=== PATIENT | female | born 1985 | race Caucasian/White ===

== ENCOUNTER 2024-03-23 21:30 | Emergency (ER) | payer MEDICAID ==
[~2024-03-23] VITALS: Ht 152.4 cm; Wt 86.1 kg
--- NOTE | 2024-03-24 00:05 | ED.PDOC ---
History of Present Illness(SKN HPI Comments This is a 38-year-old female presents to the ED chief complaint laceration to left thumb. Patient reports around 45 minutes prior to arrival she was cutting an onion which made her eyes tear accidentally slicing the tip of her left thumb. She reports no numbness or weakness. She describes pain as pressure nonradiating type pain 3/10 on pain scale. Wound is currently dressed no active bleeding at this time. Chief Complaint: Laceration Time Seen by MD: 22:43 History of Present Illness: Nurses Notes, Medications, Allergies Allergies: Coded Allergies: NO KNOWN ALLERGIES (Unverified , 03/23/24) Information Source: Patient Mode of Arrival: Ambulatory Past Medical History PAST MEDICAL HISTORY: Denies Surgical History: Denies all surgeries CONSTRUCTION CHECKER History: No Pertinent CONSTRUCTION CHECKER History Family History Family History: Reviewed,noncontributory to illness Constitutional: denies: chills, diaphoresis, fatigue, fever, malaise, sweats, weakness, others EENTM: denies: blurred vision, double vision, ear bleeding, ear discharge, ear drainage, ear pain, ear ringing, eye pain, eye redness, hearing loss, mouth pain, mouth swelling, nasal discharge, nose bleeding, nose congestion, nose pain, photophobia, tearing, throat pain, throat swelling, voice changes, others Respiratory: denies: cough, hemoptysis, orthopnea, SOB at rest, shortness of breath, SOB with excertion, stridor, wheezing, others Cardiovascular: denies: chest pain, dizzy spells, diaphoresis, Dyspnea on exertion, edema, irregular heart beat, left arm pain, lightheadedness, palpitations, PND, syncope, others Gastrointestinal: denies: abdomen distended, abdominal pain, blood streaked bowels, constipated, diarrhea, dysphagia, difficulty swallowing, hematemesis, melena, nausea, poor appetite, poor fluid intake, rectal bleeding, rectal pain, vomiting, others Genitourinary: denies: abnormal vagina bleeding, burning, dyspareunia, dysuria, flank pain, frequency, hematuria, incontinence, pain, , vagina discharge, urgency, others Neurological: denies: dizziness, fainting, headache, left sided numbness, left sided weakness, numbness, paresthesia, pre-existing deficit, right sided numbness, right sided weakness, seizure, speech problems, tingling, tremors, weakness, others Musculoskeletal: denies: back pain, gout, joint pain, joint swelling, muscle pain, muscle stiffness, neck pain, others Integumetry: reports: wounds (Tip of left thumb); denies: bruises, change in color, change in hair/nails, dryness, laceration, lesions, lumps, rash, others Allergic/Immunocompromised: denies: Difficulty Healing, Frequent Infections, Hives, Itching, others Hematologic/Lymphatic: denies: anemia, blood clots, easy bleeding, easy bruising, swollen glands, others Endocrine: denies: excessive hunger, excessive sweating, excessive thirst, excessive urination, flushing, intolerance to cold, intolerance to heat, unexplained weight gain, unexplained weight loss, others Psychiatric: denies: anxiety, bipolar disorder, depression, hopeless, panic disorder, schizophrenia, sleepless, suicidal, others Physical Exam General Appearance: No Apparent Distress, Normal HEENT: Pharynx Normal Neck: Full Range of Motion, Non-Tender Respiratory: Lungs Clear, No Respiratory Distress, Normal Breath Sounds Cardiovascular: No Edema, No JVD, No Murmur, No Gallop, Normal Peripheral Pulses, Regular Rate/Rhythm Breast Exam: Deferred Gastrointestinal: Non Tender, Soft Genitalia: Deferred Pelvic: Deferred Rectal: Deferred Extremities: Normal capillary refill, Normal inspection, Normal range of motion, Non-tender Musculoskeletal : Apperance: Normal Neurologic: Alert, stock control supervisor II-XII nml as Tested, No Motor Deficits, Normal Affect, Normal Mood, No Sensory Deficits Cerebellar Function: Normal Reflexes: Normal Skin: Dry, Normal Color, Warm, Wounds (Healing avulsion flap distal phalanx left thumb no noted bleeding or drainage. Nail bed intact) Lymphatic: No Adenopathy Was a procedure done? Was a procedure done?: Yes Sedation Sedation?: No Informed consent obtained: Yes Laceration Repair : Location Avulsion 2 cm Length 2 cm Anesthetic: Nothing Laceration Repair Prep: Saline Laceration Repair Wound Comple: epidermis/dermis repair Laceration Repair: Dermabond Informed consent obtained: Yes Risks, benefits, and alternati: Yes Notes Patient tolerated procedure well with minimal blood loss Differential Diagnosis (INTG) Differential Diagnosis: Abrasion, Laceration X-Ray, Labs, Meds, VS Vital Signs Date Time Temp Pulse Resp B/P (MAP) Pulse Ox O2 Delivery O2 Flow Rate FiO2 03/24/24 00:49 98.1 75 19 110/50 (70) 97 98.1 03/24/24 00:49 75 19 97 Room Air 03/23/24 22:05 98.1 62 18 111/68 (82) 98 X-Ray, Labs, Meds, VS Comment Good approximation bleeding stopped with Dermabond. Finger cleansed and dressed. Advised to follow up PCP in 2-3 days for wound evaluation or return to the ER or urgent care. Advised to return to the ER for increasing pain, numbness, weakness, uncontrolled bleeding, or any signs and symptoms of infection. Patient agrees with discharge plan of care. Time of 1ST Reevaluation: 00:25 Reevaluation 1ST: Improved Patient Education/Counseling: Diagnosis, Treatment, Prognosis, Need For Follow Up Family Education/Counseling: No Family Present Departure 1 Departure Time of Disposition: 00:28 Impression: Primary Impression: Avulsion of skin of finger without complication Qualified Codes: S61.209A - Unspecified open wound of unspecified finger without damage to nail, initial encounter Disposition: HOME / SELF CARE / HOMELESS Condition: Stable Discharged With: Self Critical Care Note Critical Care Time?: No Stability Stability form required: LEYLA Batista Mar 24, 2024 00:05
[2024-03-24 00:49] VITALS: BP 110/50; PULSE 75; RESP 19; TEMP 98.1; O2SAT 97
== END 2024-03-24 00:52 | disposition home or self-care (01) ==
LOC: ER 21:30
DX: S61.012A Laceration without foreign body of left thumb without damage to nail, initial encounter (principal); W26.8XXA Contact with other sharp object(s), not elsewhere classified, initial encounter; Y93.89 Activity, other specified; Y92.89 Other specified places as the place of occurrence of the external cause; Y99.8 Other external cause status
CPT/HCPCS: 12001

== ENCOUNTER → 2024-04-07 | Outpatient (CLI) | payer MEDICAID ==
[2024-04-07 16:20] LABS: Basophils # (auto) 0.1 10 ^3/uL (0-0.2); Basophils % (auto) 0.5 % (0.0-2.0); Eosinophils # (auto) 0.4 10 ^3/uL (0-0.8); Eosinophils % (auto) 3.4 % (0.0-7.0); Hematocrit 43.4 % (36.0-46.0); Hemoglobin 14.8 g/dL (12.2-16.2); Lymphocytes # (auto) 3.1 10 ^3/uL (0.4-5.4); Lymphocytes % (auto) 28.6 % (10.0-50.0); Mean Corpuscular Hgb Conc. 34.1 g/dL (32.0-36.0); Mean Corpuscular Volume 96.7 fL (80.0-100.0); Monocytes # (auto) 0.8 10 ^3/uL (0-1.3); Neutrophils # (auto) 6.6 10 ^3/uL (1.6-8.6); Neutrophils % (auto) 60.5 % (37.0-80.0); Platelet Count (auto) 304 10^3/uL (140-450); Red Blood Cells 4.49 10^6/uL (4.0-5.20); Red Cell Distribution Width 12.7 % (11.8-14.3); White Blood Cell 10.9 10^3/uL (4.4-10.8)
[2024-04-07 16:43] LABS: Alanine Aminotransferase 83 U/L (7-40); Albumin 4.6 g/dL (3.2-4.8); Alkaline Phosphatase 75 U/L (46-116); Anion Gap 8 (5-15); Aspartate Aminotransferase 36 U/L (13-40); BUN/Creatinine Ratio 12.8 (10.0-20.0); Beta HCG, Quantitative 1.7 mIU/mL (1.5-4.2); Blood Urea Nitrogen 10 mg/dL (9-23); Calcium 10.3 mg/dL (8.7-10.4); Carbon Dioxide 24 mmol/L (20-31); Chloride 107 mmol/L (98-107); Glucose 100 mg/dL (74-106); Potassium 4.2 mmol/L (3.5-5.1); Sodium 139 mmol/L (136-145)
[2024-04-07 16:44] LABS: Bilirubin, Total 0.3 mg/dL (0.2-1.0); Thyroid Stimulating Hormone 1.47 uIU/mL (0.55-4.78); Total Protein 7.1 g/dL (5.7-8.2)
[2024-04-08 09:07] LABS: Thyroxine (T4) 7.3 ug/dL (4.5-12.0)
[2024-04-08 13:12] LABS: Free T4 (Free Thyroxine) 1.16 ng/dL (0.89-1.76)
[2024-04-08 13:13] LABS: Follicle Stimulating Hormone 5.24 IU/L (SEE BELOW); Leuteinizing Hormone 11.1 IU/L
[2024-04-08 13:14] LABS: Prolactin 4.26 ng/mL (2.8-29.2)
== END | disposition home or self-care (01) ==
LOC: LAB 15:23
DX: E28.2 Polycystic ovarian syndrome (principal); Z87.42 Personal history of other diseases of the female genital tract
CPT/HCPCS: 36415; 80053; 82626; 82670; 83001; 83002; 83036; 84146; 84402; 84403; 84436; 84439; 84443; 84702; 85025